=== PATIENT | female | born 1955 | race Caucasian/White ===

== ENCOUNTER → 2022-10-04 | Outpatient (CLI) | payer BC ==
--- NOTE | 2022-10-04 13:01 | US ---
EXAMINATION TYPE: US renal artery duplex complete DATE OF EXAM: 10/04/2022 COMPARISON: NONE CLINICAL HISTORY: 67-year-old female I10 Hypertension. TECHNIQUE: Multiple sonographic images of the kidneys are obtained. Color Doppler and spectral wavefo rm analysis of the renal arteries. FINDINGS: MEASUREMENTS: RENAL SIZE: Rt Kidney: 10.6 cm 4.5 x 5.3cm Lt Kidney: 9.7 x 4.3 x 3.5cm No hydronephrosis on either side. RESISTANCE INDEX Right: 0.61 Left: 0.65 RA/AO RATIO (< 3.5 ) Right: 1.1 Left: 1.1 RA VELOCITY ( < 180 cm/s) Right: 58.2 Left: 57.0 IMPRESSION: 1. No sonographic/Doppler evidence for renal artery stenosis on either side. 2. No hydronephrosis.
== END | disposition home or self-care (01) ==
LOC: RADUSWWP 08:26
PROVIDERS: ATTEND Family Medicine
DX: I10 Essential (primary) hypertension (principal); R94.7 Abnormal results of other endocrine function studies
CPT/HCPCS: 93975

== ENCOUNTER 2023-01-29 08:58 | Day surgery (SDC) | payer BC ==
[2023-01-24 16:02] VITALS: BMI 28.5
[~2023-01-29 08:58] MED LIST: LACTATED RINGERS 1,000 ML IV SCH; LIDOCAINE 1% (10MG/ML) FOR IV START INTRADERMA PRN
[2023-01-29 09:15] VITALS: TEMP 97.9
[2023-01-29] MEDS ORDERED: PROPOFOL 10 MG/ML 20 ML VIAL IV ONE (09:46)
--- NOTE | 2023-01-29 09:49 | P.GSHP ---
History of Present Illness H&P Date: 01/29/23 Chief Complaint: Colon cancer screening 68-year-old female here for colonoscopy. She has not had 1 previously. No bowel complaints. Past Medical History Past Medical History: COPD, GERD/Reflux, Hypertension History of Any Multi-Drug Resistant Organisms: None Reported Additional Past Surgical History / Comment(s): RIGHT LEG-APRYL AND SCREWS Past Anesthesia/Blood Transfusion Reactions: No Reported Reaction Smoking Status: Former smoker - Past Family History Sister(s) Family Medical History: Cancer Additional Family Medical History / Comment(s): BREAST CANCER Medications and Allergies Home Medications Medication Instructions Recorded Confirmed Type Chlorthalidone 25 mg PO DAILY 01/25/23 01/29/23 History Escitalopram [Lexapro] 5 mg PO HS 01/25/23 01/29/23 History Melatonin 5 mg PO HS 01/25/23 01/29/23 History NIFEdipine [Adalat CC] 30 mg PO DAILY 01/25/23 01/29/23 History Omeprazole 20 mg PO DAILY 01/25/23 01/29/23 History Oxymetazoline 0.05% Nasl [place] 2 spray EA NOSTRIL BID PRN 01/25/23 01/29/23 History [Afrin 0.05% Nasal [place]] Semaglutide [Wegovy] 0.25 mg SQ FR 01/25/23 01/29/23 History carvediloL [Coreg] 12.5 mg PO BID 01/25/23 01/29/23 History lisinopriL [Zestril] 40 mg PO BID 01/25/23 01/29/23 History Allergies Allergy/AdvReac Type Severity Reaction Status Date / Time No Known Allergies Allergy Verified 01/29/23 09:07 Surgical - Exam Vital Signs Temp Pulse Resp BP Pulse Ox 97.9 F 64 18 112/69 95 01/29/23 09:13 01/29/23 09:13 01/29/23 09:13 01/29/23 09:13 01/29/23 09:13 Physical exam: General: Well-developed, well-nourished HEENT: Normocephalic, sclerae nonicteric Abdomen: Nontender, nondistended Extremities: No edema Neuro: Alert and oriented Assessment and Plan (1) Colon cancer screening Narrative/Plan: Will proceed with colonoscopy at this time. Current Visit: Yes Status: Acute Code(s): Z12.11 - ENCOUNTER FOR SCREENING FOR MALIGNANT NEOPLASM OF COLON SNOMED Code(s): 052132032
--- NOTE | 2023-01-29 10:05 | P.PCN ---
Date of Procedure: 01/29/23 Procedure(s) Performed: PREOPERATIVE DIAGNOSIS: Colon cancer screening POSTOPERATIVE DIAGNOSIS: Diverticulosis PROCEDURE: Colonoscopy ANESTHESIA: MAC SURGEON: Antonio Slade M.D. SPECIMENS: None ENDOSCOPIC PROCEDURE: The patient was placed on the endoscopy table in the left decubitus position. The Olympus colonoscope was inserted into the anus and passed under direct visualization to the base of the cecum. The appendiceal orifice was visualized. From that point the scope was slowly withdrawn inspe cting all surfaces carefully. There were no neoplastic inflammatory or polypoid lesions throughout the cecum, ascending, transverse, descending, sigmoid and rectum. There was scattered diverticulosis noted throughout the colon. Digital rectal examination was normal. The patient was taken to the recovery room in stable condition per anesthesia guidelines. RECOMMENDATIONS: Resume diet. Repeat colonoscopy in 10 years.
[2023-01-29 10:13] VITALS: RESP 16
[2023-01-29 10:32] VITALS: BP 105/60; PULSE 58
== END 2023-01-29 10:59 | disposition home or self-care (01) ==
LOC: ORWHC2ENDO 08:58
PROVIDERS: ATTEND Surgery
DX: Z12.11 Encounter for screening for malignant neoplasm of colon (principal); K57.30 Diverticulosis of large intestine without perforation or abscess without bleeding; J44.9 Chronic obstructive pulmonary disease, unspecified; K21.9 Gastro-esophageal reflux disease without esophagitis; I10 Essential (primary) hypertension; Z87.891 Personal history of nicotine dependence; Z79.899 Other long term (current) drug therapy
CPT/HCPCS: 45378; J2704

== ENCOUNTER → 2023-12-06 | Outpatient (CLI) | payer BC ==
--- NOTE | 2023-12-06 13:38 | US ---
EXAMINATION TYPE: US pelvis complete transvag DATE OF EXAM: 12/06/2023 COMPARISON: NONE CLINICAL INDICATION: Female, 68 years old with history of R19.00 INTRA-ABD AND PELVIC SWELLING, MASS AND LUM; Break through bleeding / spotting x 1 year. LMP 20 years ago. A3 TECHNIQUE: . Transabdominal sonographic images of the pelvis were acquired. Transvaginal sonographi c images were medically necessary to better assess the following anatomy: Uterus and ovaries Date of LMP: 20 years ago EXAM MEASUREMENTS: Uterus: 5.2 x 2.3 x 4.3 cm Endometrial Stripe: 0.2 cm Right Ovary: 1.2 x 0.9 x1.1 cm Left Ovary: 2.4 x 1.3 x 1.1 cm 1. Uterus: Anteverted echogenic foci seen throughout uterus 2. Endometrium: wnl 3. Right Ovary: wnl 4. Left Ovary: wnl 5. Bilateral Adnexa: wnl 6. Posterior cul-de-sac: wnl IMPRESSION: 1. No acute ultrasound abnormality. 2. Scattered echogenic foci without shadowing within the uterus
--- NOTE | 2023-12-06 13:41 | US ---
EXAMINATION TYPE: US abdomen complete DATE OF EXAM: 12/06/2023 COMPARISON: 10/04/2022 - US Renal Artery CLINICAL INDICATION: Female, 68 years old with history of R19.00 INTRA-ABD AND PELVIC SWELLING, MASS AND LUM; Epigastric lump x 1 year, maybe longer, patient lost weight; Controlled HTN and DM TECHNIQUE: Multiple sonographic images of the abdomen are obtained. FINDINGS: EXAM MEASUREMENTS: Liver Length: 18 cm Gallbladder Wall: 0.4 cm CBD: 0.7 cm Spleen: 8.9 cm Right Kidney: 9.8 x 4.0 x 4.9 cm Left Kidney: 9.3 x 3.7 x 4.2 cm SYSTEMS DESIGN ENGINEER NOTES: ? Soft tissue lump seen at patients AOC = 5.4 x 0.9 x 6.4 cm Pancreas: wnl Liver: wnl Gallbladder: Stones seen, not distended Evidence for sonographic Marks's sign: No CBD: Dilated Spleen: wnl Right Kidney: wnl Left Kidney: Cyst noted lower pole Upper IVC: wnl Abd Aorta: wnl IMPRESSION: 1. Inferior pole left cyst. 2. Cholelithiasis. 3. Dilated common bile duct #4 soft tissue. The patient's palpable abnormality. 4. 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
== END | disposition home or self-care (01) ==
LOC: RADUSWWP 12:32
PROVIDERS: ATTEND Family Medicine
DX: K80.20 Calculus of gallbladder without cholecystitis without obstruction (principal); I31.39 Other pericardial effusion (noninflammatory); R19.00 Intra-abdominal and pelvic swelling, mass and lump, unspecified site; N28.1 Cyst of kidney, acquired
CPT/HCPCS: 76700; 76830; 76856

== ENCOUNTER → 2023-12-06 | Outpatient (CLI) | payer BC ==
--- NOTE | 2023-12-10 08:41 | MM ---
Reason for Exam: Screening (asymptomatic). Last mammogram was performed 1 year(s) and 1 month(s) ago. Patient History: Menarche at age 14. First Full-Term at age 19. Postmenopausal. Patient has history of breast feeding. Risk Values: Jessica 5 year model risk: 1.2%. NCI Lifetime model risk: 4.4%. Prior Study Comparison: 06/22/2021 Bilateral MG 3D screening mammo w/cad, [facility]. 03/30/2022 Bilateral MG 3D screening mammo w/cad, [facility]. 10/31/2022 Bilateral MG 3D screening mammo w/cad, [facility]. Tissue Density: The breasts are heterogeneously dense, which may obscure small masses. Findings: Analyzed By CAD. There is no suspicious group of microcalcifications or new suspicious mass in either breast. Overall Assessment: Negative, BI-RAD 1 Management: Screening Mammogram of both breasts in 1 year. . Patient should continue monthly self-breast exams. A clinical breast exam by your physician is recommended on an annual basis. This exam should not preclude additional follow-up of suspicious palpable abnormalities. Note on Jessica scores and lifetime risk: 1. A Jessica score greater than 3% is considered moderate risk. If this is the case, consider specialist referral to assess eligibility for a risk reducing agent. 2. If overall lifetime risk for the development of breast cancer is 20% or higher, the patient may qualify for future screening with alternating mammogram and breast MRI. Electronically signed and approved by: Jeffery Dan M.D. Radiologis
== END | disposition home or self-care (01) ==
LOC: RADMAMWWP 13:05
PROVIDERS: ATTEND Family Medicine
DX: Z12.31 Encounter for screening mammogram for malignant neoplasm of breast (principal); Z78.0 Asymptomatic menopausal state
CPT/HCPCS: 77063; 77067

== ENCOUNTER → 2023-12-23 | Outpatient (CLI) | payer BC ==
--- NOTE | 2023-12-23 19:28 | MR ---
EXAMINATION TYPE: MR pancreas wo/w con DATE OF EXAM: 12/23/2023 7:15 PM CLINICAL INDICATION:Female, 68 years old with history of K83.8 DISEASE BILIARY TRACT; PHH, Disease of biliary tract, abnormal US COMPARISON: None TECHNIQUE: Multiplanar multi-sequence imaging was performed without contrast. Post contrast imaging was performed. Post IV contrast subtraction images were also submitted for review. IV Contrast: 6 cc Gadobutrol FINDINGS: LOWER CHEST: No gross irregularity. ABDOMEN Liver: No evidence for hepatic steatosis or cirrhosis. Signal dropout on chemical shift in phase imag ing. Gallbladder and Bile ducts: No evidence for ductal dilation, or biliary stricture or evidence of chol edocholithiasis. The gallbladder densities multiple layering gallstones. The common duct measures up to 6 mm in the common hepatic duct measures up to 6 mm. Pancreas: No ductal dilation. No evidence for solid mass. At multiple there is too high T2 lesions in the pancreas in the pancreatic tail measuring 3 mm series 701 image 35 and in the pancreatic head me asuring 3 mm series 701 image 28. No abnormal postcontrast enhancement within these regions since. Th tia closely approximate the main pancreatic duct. Spleen: Normal for size. Adrenal glands: Unremarkable. Kidneys: Bilateral extrarenal pelves. Inferior left renal low T2 high T1 signal cysts measuring 14 mm . No abnormal postcontrast enhancement confirmed on subtraction imaging. Additional subcentimeter lef t renal high T2 low T1 signal probable cysts without enhancement. No evidence for obstructive uropath y. No suspicious renal masses. Stomach and Bowel: No evidence for bowel wall thickening or evidence for obstruction. Retroperitoneum/Peritoneum: No evidence of pneumoperitoneum or free fluid. Vasculature: No aortic aneurysm. Musculoskeletal: The osseous structures appear intact. Lymph Nodes: No gross evidence for lymphadenopathy. Abdominal wall: Unremarkable. IMPRESSION: 1. Pancreatic head and tail 3 mm cystic lesions possibly representing sequela of prior pancreatitis versus side branch intraductal mucinous neoplasm versus other cystic neoplasms. No solid pancreatic n eoplasm identified. Attention on follow-up imaging in one year with MRI MRCP with contrast to ensure stability. 2. Iron deposition in the liver . 3. Proteinaceous/hemorrhagic left renal cyst measuring 15 mm. 4. Cholelithiasis.
== END | disposition home or self-care (01) ==
LOC: RADMRIMAIN 17:43
PROVIDERS: ATTEND Family Medicine
DX: N28.1 Cyst of kidney, acquired (principal); K80.20 Calculus of gallbladder without cholecystitis without obstruction; K86.2 Cyst of pancreas; K83.8 Other specified diseases of biliary tract; K76.89 Other specified diseases of liver; R93.89 Abnormal findings on diagnostic imaging of other specified body structures
CPT/HCPCS: 74183; A9585

== ENCOUNTER → 2023-12-23 | Outpatient (CLI) | payer BC ==
--- NOTE | 2023-12-25 12:09 | MR ---
EXAMINATION TYPE: MR shoulder RT wo con DATE OF EXAM: 12/23/2023 COMPARISON: None. HISTORY: Right shoulder pain into arm for 15 years. TECHNIQUE: Multiplanar, multisequence imaging of the right shoulder is performed without contrast. FINDINGS: Rotator Cuff: Increased signal in the supraspinatus and infraspinatus tendons with areas of tearing i nvolving posterior fibers of the supraspinatus and anterior fibers of infraspinatus tendon. Some incr eased signal in the subscapularis tendon with surrounding fluid. Moderate to severe atrophy involving supraspinatus and infraspinatus tendons. Acromioclavicular Joint: An os acromiale is seen. [id number] narrowing and spurring of the acro mioclavicular joint with subchondral cystic change. Glenohumeral Joint: High riding humeral head suggesting underlying instability. Narrowing is present. There is large bony projection from the inferior medial aspect of the humeral head Labrum: Increased signal and blunting superior labrum consistent with tear. Biceps Tendon: The long head of biceps is in normal location within bicipital groove. Of intracapsula r portion is not as well visualized. Bone marrow signal: Heterogeneity is seen. There is subchondral cystic change involving the lateral a spect of the humeral head. Some heterogeneous increased T2 signal involving the anterior superior asp ect of the osseous glenoid. Other: No additional significant abnormality is appreciated. IMPRESSION: 1. Severe glenohumeral joint arthropathy with a high riding humeral head suggesting underlying instab ility. 2. Tendinosis and significant tearing of the supraspinatus and infraspinatus tendons with moderate to severe muscular atrophy. 3. Os acromiale noted. 4. Superior labral tear.
== END | disposition home or self-care (01) ==
LOC: RADMRIMAIN 17:40
PROVIDERS: ATTEND Family Medicine
DX: S43.431A Superior glenoid labrum lesion of right shoulder, initial encounter (principal); M19.011 Primary osteoarthritis, right shoulder; M67.813 Other specified disorders of tendon, right shoulder

== ENCOUNTER → 2024-03-30 | Outpatient (CLI) | payer BC ==
--- NOTE | 2024-03-30 16:47 | US ---
EXAMINATION TYPE: US carotid duplex BILAT DATE OF EXAM: 03/30/2024 COMPARISON: NONE CLINICAL INDICATION: Female, 69 years old with history of Z91.89 high risk of cardiovascular disease ; TECHNIQUE: Carotid duplex ultrasound examination. Indirect Doppler criteria was utilized. FINDINGS: EXAM MEASUREMENTS: RIGHT: Peak Systolic Velocity (PSV) cm/sec ----- Right CCA: 52.8 ----- Right ICA: 48.8 ----- Right ECA: 66.0 ICA/CCA ratio: 0.9 RIGHT: End Diastole cm/sec ----- Right CCA: 18.4 ----- Right ICA: 17.1 ----- Right ECA: 13.1 LEFT: Peak Systolic Velocity (PSV) cm/sec ----- Left CCA: 52.8 ----- Left ICA: 58.1 ----- Left ECA: 66.0 ICA/CCA ratio: 1.1 LEFT: End Diastole cm/sec ----- Left CCA: 19.7 ----- Left ICA: 22.3 ----- Left ECA: 11.8 VERTEBRALS (direction of flow): Right Vertebral: Antegrade Left Vertebral: Antegrade Rhythm: Normal POSTDOCTORAL SCIENTIST NOTES: No significant stenosis seen. Mild plaque noted on the right with more moderate pl aque formation noted within the left carotid bulb. IMPRESSION: Less than 50% stenosis of the bilateral carotid bifurcations. Criteria for Assigning % of Stenosis / Diameter reduction (Estimation based on the indirect measurements of the internal carotid artery velocities (ICA PSV). 1. Normal (no stenosis)=ICA PSV < 125 cm/s: ratio < 2.0: ICA EDV<40 cm/s. 2. Less than 50% stenosis=ICA PSV < 125 cm/s: ratio < 2.0: ICA EDV<40 cm/s. 3. 50 to 69% stenosis=ICA PSV of 125 to 230 cm/s: ration 2.0 ? 4.0: ICA EDV 40-100 cm/s. 4. Greater than 70% stenosis to near occlusion= ICA PSV > 230 cm/s: ratio > 4.0: ICA EDV > 100 cm/s. 5. Near occlusion= ICA PSV velocities may be low or undetectable: variable ratio and ICA EDV. 6. Total occlusion=unable to detect flow.
== END | disposition home or self-care (01) ==
LOC: RADUSWWP 16:21
PROVIDERS: ATTEND Family Medicine
DX: Z91.89 Other specified personal risk factors, not elsewhere classified (principal)
CPT/HCPCS: 93880

== ENCOUNTER → 2024-05-08 | Outpatient (CLI) | payer BC ==
[2024-05-08 16:02] LABS: ALT 12 U/L (8-44); AST 16 U/L (13-35); Albumin 4.4 g/dL (3.8-4.9); Alkaline Phosphatase 76 U/L (41-126); Blood Urea Nitrogen 21.1 mg/dL (9.0-27.0); Calcium 9.2 mg/dL (8.7-10.3); Chloride 106 mmol/L (96-109); Chol/HDL Ratio 1.64 Ratio; Glucose 108 mg/dL (70-110); Potassium 3.8 mmol/L (3.5-5.5); Sodium 142 mmol/L (135-145); T4, Free (Free Thyroxine) 1.25 ng/dL (0.80-1.80); Total Bilirubin 0.6 mg/dL (0.3-1.2); Total Protein 6.4 g/dL (6.2-8.2); VLDL Calculation 9.26 mg/dL (5.00-40.00)
[2024-05-08 16:28] LABS: Basophils # (A) 0.02 X 10*3/uL (0.00-0.10); Basophils % (A) 0.3 %; Eosinophils # (A) 0.17 X 10*3/uL (0.04-0.35); Eosinophils % (A) 2.6 %; HCT 40.5 % (37.2-46.3); HGB 13.2 g/dL (12.0-15.0); Lymphocytes # (A) 0.91 X 10*3/uL (0.90-5.00); Lymphocytes % (A) 13.9 %; MCH 28.6 pg (27.0-32.0); MCHC 32.6 g/dL (32.0-37.0); MCV 87.9 FL (80.0-97.0); Mean Platelet Volume 11.1 FL (9.5-12.2); Monocytes % (A) 6.1 %; NRBC Per 100 WBC 0 X 10*3/uL (0.00-0.01); Neutrophils # (A) 5.02 X 10*3/uL (1.80-7.70); Neutrophils % (A) 76.6 %; Platelet Count 154 X 10*3/uL (140-440); RBC 4.61 X 10*6/uL (4.10-5.20); WBC 6.55 X 10*3/uL (4.50-10.00)
== END ==
LOC: LABWHC1 10:34
PROVIDERS: ATTEND Physician Assistant Medical
DX: E11.9 Type 2 diabetes mellitus without complications (principal); R53.83 Other fatigue
CPT/HCPCS: 36415; 80053; 80061; 82306; 82607; 82746; 84439; 84443; 85025

== ENCOUNTER → 2024-07-15 | Outpatient (CLI) | payer BC ==
--- NOTE | 2024-07-18 20:00 | US ---
EXAMINATION TYPE: US venous doppler duplex LE RT DATE OF EXAM: 07/15/2024 3:54 PM COMPARISON: NONE CLINICAL INDICATION: Female, 69 years old with history of Right ankle; R22.40 MASS AND LUMP, UNSPECIF IED LOW; Swelling x 1 week patient denies any other signs or symptoms at this time TECHNIQUE: The lower extremity deep venous system is examined utilizing real time linear array sonog manda with graded compression, color doppler sonography, and spectral doppler. SIDE PERFORMED: Right FINDINGS: VESSELS IMAGED: Common Femoral Vein Deep Femoral Vein Greater Saphenous Vein * Femoral Vein Popliteal Vein Small Saphenous Vein * Proximal Calf Veins (* superficial vessels) Right Leg: Negative for DVT, Color Doppler imaging shows patency of the vessels. Spectral waveforms are within normal limits. Left Leg: NA, Color Doppler imaging shows patency of the vessels. Spectral waveforms are within norm al limits. IMPRESSION: No ultrasound evidence for deep venous thrombosis. [facility], , 07/18/2024 7:58 PM
== END | disposition home or self-care (01) ==
LOC: RADUSWWP 15:41
PROVIDERS: ATTEND Family Medicine
DX: R22.41 Localized swelling, mass and lump, right lower limb (principal)